=== PATIENT | female | born 1980 | race Caucasian/White ===

== ENCOUNTER → 2020-01-02 17:41 | Outpatient (CLI) | payer OTHER, SELFPAY ==
--- NOTE | 2020-01-02 17:41 | MM_ITS ---
PROCEDURE: MM DIG SCREENING MAMM BI W/CAD Digital Breast Tomosynthesis Included CLINICAL INDICATION: Routine Screening Mammogram-Hx of Breast Cancer There is a history of breast cancer in the patient's mother diagnosed before menopause. COMPARISON: MG DMDBAV DIG MAMM-DX JIMMY W ADD VIEWS from 06/05/2015 TECHNIQUE: Standard CC and MLO images and 3D Tomosynthesis was obtained. R2 CAD reviewed. FINDINGS: Moderate scattered fibroglandular densities are seen throughout both breasts. There is a tiny benign-appearing nodular density central portion left breast. It has smooth borders and likely is a tiny cyst. However there is a similar slightly larger density central portion right breast with slightly ill-defined borders best demonstrated on soledad images and best seen on the CC projection. It is not definitely seen on the MLO view. However recommend the patient return for spot compression MLO and CC views and ultrasound if this proves to be a true lesion. There are no suspicious microcalcifications. IMPRESSION: Moderate breast density with slightly suspicious asymmetric density right breast BI-RAD Category: 0 Need Additional Imaging Evaluation FOLLOW-UP: IMM Immediate Follow-up Recommended (A letter has been sent to the patient regarding results of the study.) Dictated by: Dr. Mark Herron MD 01/04/2020 09:12 Dr. Mark Herron MD in [place] 01/04/2020 09:12
== END ==
PROVIDERS: PCP Internal Medicine Adolescent Medicine; Visit Provider Nurse Practitioner Obstetrics & Gynecology
DX: Z12.31 Encounter for screening mammogram for malignant neoplasm of breast (principal); Z85.3 Personal history of malignant neoplasm of breast
CPT/HCPCS: 77063; 77067

== ENCOUNTER → 2020-01-12 14:42 | Outpatient (CLI) | payer OTHER, SELFPAY ==
--- NOTE | 2020-01-12 14:42 | US_ITS ---
PROCEDURE: MM DIG MAMM DX UNILAT RT CAD Digital Breast Tomosynthesis Included CLINICAL INDICATION: ABNORMAL MAMM Follow-up abnormal mammogram COMPARISON: MG DMDBAV DIG MAMM-DX JIMMY W ADD VIEWS from 06/05/2015 MG MM DIG SCREENING MAMM BI W/CAD from 01/02/2020 US US BREAST RT COMPLETE from 01/12/2020 US US BREAST LT COMPLETE from 01/12/2020 TECHNIQUE: Problem solving views performed along with bilateral breast ultrasound FINDINGS: On the CC view there is a persistent faint nodular opacity in the central aspect of the right breast posterior 1/3 measuring approximately 5 mm. Rolled views do not definitely reproduces finding however. Right breast ultrasound: At 10 o'clock there is a 9 x 5 mm cyst or dilated duct. Left breast ultrasound: There are 2 nodular densities in the lateral aspect of the left breast on the mammogram. At 3 o'clock there is a 5 mm cyst which may correspond to 1 of these nodules. In the left axilla there is a 14 x 13 mm hypoechoic nodule in the subcutaneous tissues with heterogeneous echogenicity with enhanced through transmission of sound possibly due to a sebaceous cyst. Technologist notes that this has been present for 2 years and is in the axilla. Additional nodule in the left axilla noted with similar echogenicity at 5 mm. IMPRESSION: Probably benign findings. Recommend bilateral 6 month mammographic and sonographic follow-up. Palpable nodules in the axilla may represent sebaceous cyst. Please correlate with clinical findings. BI-RAD Category: 3 Probably Benign Finding Short Term Follow-up FOLLOW-UP: 6M 6Month Follow-up (A letter has been sent to the patient regarding results of the study.) Dictated by: Evangelista Herrera MD 01/19/2020 11:16 Evangelista Herrera MD in [place] 01/19/2020 11:16
== END ==
PROVIDERS: PCP Internal Medicine Adolescent Medicine; Visit Provider Nurse Practitioner Obstetrics & Gynecology
DX: R92.2 Inconclusive mammogram (principal)
CPT/HCPCS: 76641; 77061; 77065; G0279

== ENCOUNTER 2020-11-05 18:09 | Emergency (ER) | payer OTHER, SELFPAY ==
[2020-11-05 18:15] VITALS: BP 146/91; PULSE 89; RESP 19; TEMP 36.8; O2SAT 98; BMI 48.6
--- NOTE | 2020-11-05 18:40 | HMH.EDUTC ---
[facility] [place] Clinical Impression: Sinusitis Qualifiers: Sinusitis location: unspecified location Chronicity: unspecified Qualified Code(s): J32.9 - Chronic sinusitis, unspecified Disposition: Home, Self-Care Condition on Discharge: Good Instructions: Sinusitis, DI for Sinusitis, Amoxicillin and Clavulanic Acid, Methylprednisolone Additional Instructions: *Monitor Temp, Over the counter Motrin or Tylenol as directed/as needed Tylenol every 4 hours and Motrin every 6 hours (as long as your family doctor has told you that you can take it) for fever or pain. and straight to ER if unable to lower temp less than 101.0 after medication given *Warm salt water gargles may help to soothe the throat *Throat Lozenges *Warm fluids like tea with honey may help to soothe the throat *Sleep elevated *Humidifier/Vaporizer Take medication as prescribed Follow up IMMEDIATELY for new or worsening symptoms or no Noticeable improvement over the next 48-72 hours. 911 for difficulty breathing or swallowing You were tested for today for COVID19 your test result should be back in the next 24-48 hours, You was given handout to [facility] your results should be available on there later today if you do not have internet or trouble accessing you can call at [phone] You was given a handout with instructions for Self Quarantine and Self isolation for while you wait on test results and what to do if they are positive If you are positive the Health Dept will be contacting you also Make sure to take your Vitamins Vit. C Vit D and Zinc if you can take them Prescriptions: methylPREDNISolone [Medrol 4mg tab] 4 mg PO DIRECTED #21 tab Transmission Status: Pending to [employer] # Azithromycin [Z-Kin 250mg Tab] 250 mg PO DIRECTED #6 tab Transmission Status: Pending to [employer] # Referrals: Stoney Lopez MD [Primary Care Provider] - As needed Forms: Work/School Release Time of Disposition: 18:49 Medical Decision Making - Baljit Inquiry Pt receiving controlled substance: No Baljit was queried for this patient: No Vital Signs: 11/05/20 18:15 Temperature 98.2 F Temperature Source Oral Pulse Rate [Right Brachial] 89 Respiratory Rate 19 Blood Pressure [Right Arm] 146/91 H Blood Pressure Mean [Right Arm] 109 Blood Pressure Source [Right Arm] Automatic Cuff Blood Pressure Position [Right Arm] Sitting 02 Sat by Pulse Oximetry 98 Oxygen Delivery Method Room Air Orders (Tests/Meds): ORDERS Category Date Time Status Covid-19 Nasal PCR ([facility]) Routine Lab 11/05/20 18:20 Received Medical Decision Narrative: Patient denies state that she is on the last day of her period [facility] [place] - General Stated complaint: sinus pressure, congestion, haedache Time Seen by Provider: 11/05/20 18:40 Mode of Arrival: Ambulatory Source of Information: Patient Limitations: No Limitations Description of Symptoms (Recalled from Triage Doc. by RN): PATIENT C/O SINUS CONGESTION, HEADACHE, AND SORE THROAT X 3 DAYS HEENT Symptoms (Recalled from RN notes): Yes Resp Symptoms (Recalled from RN notes): No Skin Symptoms (Recalled from RN notes): No MS Symptoms (Recalled from RN notes): No Functional Status (Recalled from RN notes): WNL - History of Present Illness Provider Complaint: Patient state that she has sinus issues states that she has been having congestion and drainage for over a week and for the last 3-4 days she has been having pain and pressure like feeling in her sinsues and feeling like it is behind her eyes States that she feels like it is a sinus infection but also wanted to get tested for COVID to make sure she is passing it on - Related Data Previous Rx's Medication Instructions Recorded Azithromycin [Z-Kin 250mg Tab*] 250 mg PO UD DOSE PK #6 tab 05/09/19 methylPREDNISolone [Medrol 4mg 4 mg PO DIRECTED #21 tab 05/09/19 tab] norgestimate 0.25 mg-ethinyl See R
[2020-11-05 18:49] LABS: UTC Strep Screen (Rapid) Negative (Negative)
[2020-11-05 18:55] VITALS: BP 146/91; PULSE 89; RESP 19; TEMP 36.8; O2SAT 98
== END 2020-11-05 18:58 | disposition home or self-care (01) ==
PROVIDERS: Emergency Provider Nurse Practitioner; PCP Internal Medicine Adolescent Medicine
DX: J32.9 Chronic sinusitis, unspecified (principal); Z20.822 Contact with and (suspected) exposure to COVID-19
CPT/HCPCS: 87880; 99203; G0463; U0003

== ENCOUNTER → 2021-02-25 15:13 | Outpatient (CLI) | payer OTHER, SELFPAY ==
[2021-02-25 16:18] LABS: Chloride 102 mmol/L (98-107); Potassium 4.7 mmoL/L (3.5-5.1); Sodium 136 mmol/L (136-145)
[2021-02-25 16:21] LABS: Alanine Aminotransferase 32 U/L (12-78); Albumin Level 4.4 g/dl (3.5-5.0); Albumin/Globulin Ratio 1.3 (1.1-1.8); Alkaline Phosphatase 120 U/L (38-126); Anion Gap 14.7 mEq/L (5-15); Aspartate Amino Transferase 36 U/L (14-36); Bilirubin,Total 0.3 mg/dl (0.2-1.3); Blood Urea Nitrogen 14 mg/dl (7-17); Calcium 9.6 mg/dl (8.4-10.2); Carbon Dioxide 24 mmol/L (22.0-30.0); Cholesterol 194 mg/dl (140-200); Estimated Glomerular Filt Rate 80 ml/min (>60); GFR (African American) 97 ML/MIN (>60); Globulin 3.4 g/dL (1.3-3.2); Glucose 130 mg/dl (74-100); Total Protein,Serum 7.8 g/dl (6.3-8.2); Triglycerides 148 mg/dl (30-150); VLDL Cholesterol 30 mg/dL (0-40)
[2021-02-25 16:22] LABS: Chol/HDL Ratio 5.1 (1-3.5); HDL Cholesterol 38 mg/dl (40-60)
[2021-02-25 16:33] LABS: Direct LDL Cholesterol 138.34 mg/dL (100-129)
== END ==
PROVIDERS: Visit Provider Nurse Practitioner Family
DX: Z00.00 Encounter for general adult medical examination without abnormal findings (principal)
CPT/HCPCS: 36415; 80053; 80061

== ENCOUNTER 2021-08-03 14:46 | Emergency (ER) | payer OTHER, SELFPAY ==
[2021-08-03 15:00] VITALS: BP 154/99; PULSE 89; RESP 19; TEMP 37; O2SAT 98; BMI 44.9
--- NOTE | 2021-08-03 15:27 | HMH.EDUTC ---
[facility] [place] Clinical Impression: Sinusitis Qualifiers: Sinusitis location: unspecified location Chronicity: unspecified Qualified Code(s): J32.9 - Chronic sinusitis, unspecified Disposition: Home, Self-Care Condition on Discharge: Good Instructions: Sinusitis, DI for Sinusitis, Sore Throat Additional Instructions: *Monitor Temp, Over the counter Motrin or Tylenol as directed/as needed Tylenol every 4 hours and Motrin every 6 hours (as long as your family doctor has told you that you can take it) for fever or pain. and straight to ER if unable to lower temp less than 101.0 after medication given *Warm salt water gargles may help to soothe the throat *Throat Lozenges *Warm fluids like tea with honey may help to soothe the throat *Sleep elevated *Humidifier/Vaporizer Take medication as prescribed Your throat swab was sent for culture. Those results are typically sent to your primary care. Be sure to follow up in 2-3 days with your family doctor/primary care physician if no improvement so they can review those result and treat if necessary. If you don?t have a primary care doctor, I recommend you get one but in the mean time, you will have to return to a walk in clinic Follow up IMMEDIATELY for new or worsening symptoms or no Noticeable improvement over the next 48-72 hours. 911 for difficulty breathing or swallowing Prescriptions: Amoxicillin/Potassium Clav [Amox-Clav 875-125 mg Tablet] 1 tab PO BID #20 tab Transmission Status: Pending to [employer] # methylPREDNISolone [Medrol 4mg tab] 4 mg PO DIRECTED #21 tab Transmission Status: Pending to [facility] # Referrals: Beatriz Maldonado APRN [Primary Care Provider] - As needed Time of Disposition: 15:40 Medical Decision Making - Baljit Inquiry Pt receiving controlled substance: No Baljit was queried for this patient: No Vital Signs: 08/03/21 15:00 Temperature 98.6 F Temperature Source Oral Pulse Rate [Left Brachial] 89 Respiratory Rate 19 Blood Pressure [Left Arm] 154/99 H Blood Pressure Mean [Left Arm] 117 Blood Pressure Source [Left Arm] Automatic Cuff Blood Pressure Position [Left Arm] Sitting 02 Sat by Pulse Oximetry 98 Oxygen Delivery Method Room Air - Lab Data Lab results reviewed: Yes: I reviewed the patient's lab results. Lab Results 08/03/21 15:05: Group A Strep Rapid Negative Orders (Tests/Meds): ORDERS Category Date Time Status Strep Screen Confirmation Stat Micro 08/03/21 15:05 Received [facility] [place] - General Stated complaint: sore throat,fever congestion Time Seen by Provider: 08/03/21 15:27 Mode of Arrival: Ambulatory Source of Information: Patient Limitations: No Limitations Description of Symptoms (Recalled from Triage Doc. by RN): PATIENT C/O COUGH, CONGESTION AND SORE THROAT SINCE WEDNESDAY HEENT Symptoms (Recalled from RN notes): Yes Resp Symptoms (Recalled from RN notes): Yes Skin Symptoms (Recalled from RN notes): No MS Symptoms (Recalled from RN notes): No Functional Status (Recalled from RN notes): WNL - History of Present Illness Provider Complaint: Patient states that she has been having sinus congestion and pressure along with sore throat, cough and headache State that she has been taking OTC medications but has continued to feel worse over the last few days and she feels like she may have strep throat - Related Data Previous Rx's Medication Instructions Recorded Amoxicillin/Potassium Clav 1 tab PO BID #20 tab 08/03/21 [Amox-Clav 875-125 mg Tablet] methylPREDNISolone [Medrol 4mg 4 mg PO DIRECTED #21 tab 08/03/21 tab] Allergies Allergy/AdvReac Type Severity Reaction Status Date / Time ibuprofen [IBUPROFEN] Allergy Mild Verified 01/02/19 14:52 meloxicam [From MOBIC] Allergy Mild Verified 01/02/19 14:52 ranitidine [RANITIDINE] Allergy Mild Verified 01/02/19 14:52 - Worker's Comp Is this a Worker's Comp case?: No [place] History - Hepatiti
[2021-08-03 15:29] LABS: Strep Scrn Group A (Rapid) Negative (Negative)
[2021-08-03 15:50] VITALS: BP 154/99; PULSE 89; RESP 19; TEMP 37; O2SAT 98
== END 2021-08-03 15:55 | disposition home or self-care (01) ==
PROVIDERS: Emergency Provider Nurse Practitioner; PCP Nurse Practitioner Family
DX: J32.9 Chronic sinusitis, unspecified (principal); J02.9 Acute pharyngitis, unspecified; F17.210 Nicotine dependence, cigarettes, uncomplicated
CPT/HCPCS: 87430; 99212; G0463

== ENCOUNTER → 2022-02-06 09:35 | Outpatient (CLI) | payer OTHER, SELFPAY ==
--- NOTE | 2022-02-06 09:37 | MM_ITS ---
PROCEDURE INFORMATION: Exam: MG Bilateral Screening 3D Mammography Exam date and time: 02/06/2022 9:39 AM Age: 42 years old Clinical indication: Screening examination. Patient had been recommended for six-month follow-up for sonographic findings on 01/19/2020 and for calcifications in the upper aspect of the right breast in the MLO on 01/19/2020. TECHNIQUE: Imaging protocol: Bilateral Screening tomosynthesis and 2D mammography including computer-aided detection (CAD) when performed. COMPARISON: 1. MG MM DIG MAMM DX UNILAT RT CAD 01/12/2020 2:54 PM 2. MG MM DIG SCREENING MAMM BI W/CAD 01/02/2020 5:40 PM 3. MG DMDBAV DIG MAMM-DX JIMMY W ADD VIEWS 06/05/2015 5:06 PM 4. US BREAST LT COMPLETE 01/12/2020 3:18 PM FINDINGS: MAMMOGRAPHY: Breast composition: There are scattered areas of fibroglandular density. Mass: None. Architectural distortion: None. Calcifications: No suspicious calcifications. Asymmetric density: None. Skin thickening: None. Axillary adenopathy: None. IMPRESSION: See comment No mammographic evidence of malignancy. Annual screening is recommended unless otherwise clinically indicated. Please note that follow-up bilateral sonography was recommended on 01/19/2020, if this is not been performed in the interval, patient should be recalled for bilateral sonography at this time. ASSESSMENT: BI-RADS Category 1: Negative
== END ==
PROVIDERS: PCP Nurse Practitioner Family; Visit Provider Nurse Practitioner Family
DX: Z12.31 Encounter for screening mammogram for malignant neoplasm of breast (principal)
CPT/HCPCS: 77063; 77067

== ENCOUNTER 2023-07-05 10:30 | Outpatient (CLI) | payer BC, SELFPAY ==
--- NOTE | 2023-07-05 10:31 | MM_ITS ---
PROCEDURE INFORMATION: Exam: MG Bilateral Screening 3D Mammography Exam date and time: 07/05/2023 10:38 AM Age: 43 years old Clinical indication: Screening examination TECHNIQUE: Imaging protocol: Bilateral Screening tomosynthesis and 2D mammography including computer-aided detection (CAD) when performed. COMPARISON: 1. MG MM DIG SCREENING MAMM BI W/CAD 02/06/2022 9:39 AM 2. MG MM DIG MAMM DX UNILAT RT CAD 01/12/2020 2:54 PM FINDINGS: MAMMOGRAPHY: Breast composition: There are scattered areas of fibroglandular density. Mass: None. Architectural distortion: None. Calcifications: No suspicious calcifications. Asymmetric density: None. Skin thickening: None. Axillary adenopathy: None. IMPRESSION: No mammographic evidence of malignancy. Annual screening is recommended unless otherwise clinically indicated. ASSESSMENT: BI-RADS Category 1: Negative
== END 2023-07-05 23:59 | disposition home or self-care (01) ==
LOC: RAD 10:31
PROVIDERS: PCP Nurse Practitioner Family; Visit Provider Nurse Practitioner Obstetrics & Gynecology
DX: Z12.31 Encounter for screening mammogram for malignant neoplasm of breast (principal)
CPT/HCPCS: 77063; 77067

== ENCOUNTER 2024-03-29 17:04 | Emergency (ER) | payer BC, SELFPAY ==
--- NOTE | 2024-03-29 17:04 | ECG_ITS ---
APPROVED REPORT Exam: Resting ECG HR:90 bpm ECG Measurements Heart Rate 90 AXES MD 138 P 52 QRSd 87 QRS -2 QT 343 T 46 QTc 391 Conclusion Sinus rhythm Electronically signed by : DYLAN BRANDT, 03/29/2024 23:09:49
[2024-03-29 17:05] VITALS: BP 155/87; PULSE 95; RESP 12; TEMP 36.8; O2SAT 100; BMI 39.3
--- NOTE | 2024-03-29 17:33 | ED_ITS ---
Discharge Plan Disposition Patient Disposition: Home, Self-Care Prescriptions Prescriptions: New dexamethasone 6 mg tablet 6 mg PO DAILY Qty: 5 0RF No Action Mounjaro 5 mg/0.5 mL pen injector 5 mg SQ WEEKLY Patient Comments: INJECT 1 SYRINGE SUBCUTANEOUSLY ONCE A WEEK lisinopril 2.5 mg tablet 2.5 mg PO DAILY simvastatin 10 mg tablet 10 mg PO DAILY Referrals Follow up/Referrals: Jose De Jesus Ansari APRN [Primary Care Provider] - See instructions Dirk Olivia, PT [Physical Therapist] - See instructions Activity Restrictions/Add. Instructions Additional Instructions/Restrictions: Call your family doctor to establish care for this visit to the emergency department and schedule follow-up within 48 hours to ensure improvement. If you have any worsening of your condition or any other concerning signs or symptoms, return to the emergency department or your primary care doctor for further evaluation. Decadron each morning for the next 5 days. Physical therapy information here if you continue to have symptoms. Clinical Impressions Clinical Impression: Cervical radiculopathy at C8, Heart palpitations Print Language Print Language: Serbian Discharge ED Provider: Karl Beebe [facility] General Chief Complaint: Chest Pain Stated Complaint: Chest Pain Time Seen by Provider: 03/29/24 17:14 Mode of Arrival: Ambulatory Source of Information: Patient Limitations: No Limitations Description of Symptoms (Recalled from ER Triage Doc. by RN): pt presents to ED with c/o heart feeling funny . pt reports no chest pain and no shortness of breath. pt reports that she was at work and got up to walk around and began to have her heart flutter. pt reports pain radiating to left arm. History of Present Illness HPI narrative: Please note that above description of symptoms, in this electronic medical record under categorization of recalled from ER triage doctor by RN are reflective of an initial nursing assessment, however, is not reflective of my full history and physical exam that was personally taken and clarified. Consequentially, this preceding description of symptoms, which may include the patient's categorized chief complaint in the EMR, do not reflect my personal clinical impression, and the ultimate description of history of present illness and patient stated complaints should be deferred to this section of the note. Unless stated otherwise or congruent with this section of the note, additional signs, symptoms, or incongruence should be interpreted as inaccurate with my clinical impression. Related Data Home Medications ?Medication ?Instructions ?Recorded ?Confirmed lisinopril 2.5 mg tablet 2.5 mg PO DAILY 07/05/23 07/05/23 simvastatin 10 mg tablet 10 mg PO DAILY 07/05/23 07/05/23 tirzepatide 5 mg/0.5 mL 5 mg SQ WEEKLY 07/05/23 07/05/23 subcutaneous pen injector (Mounjaro) Previous Rx's ?Medication ?Instructions ?Recorded dexamethasone 6 mg tablet 6 mg PO DAILY #5 tabs 03/29/24 Allergies Allergy/AdvReac Type Severity Reaction Status Date / Time ibuprofen (IBUPROFEN) Allergy Mild Verified 07/05/23 09:39 meloxicam (From MOBIC) Allergy Mild Verified 07/05/23 09:39 ranitidine (RANITIDINE) Allergy Mild Verified 07/05/23 09:39 [facility] Disclaimer: The information contained in this section may have been updated after the patient was seen, as this information can be updated by other users. Medical History (Updated 03/29/24 @ 18:48 by Karl Beebe MD) Diabetes type 2, controlled Surgical History (Updated 07/05/23 @ 09:47 by ESTEE Kruger) S/P arteriovenous (AV) fistula repair History of cholecystectomy Family History (Updated 07/05/23 @ 09:48 by ESTEE Kruger) Mother Cancer Grandmother Cancer Father Diabetes Grandfather Diabetes Social History (Updated 07/05/23 @ 09:49 by ESTEE Kruger) Smoking Status: Never smoker alcohol intake: never substance use type: denies use current occupational status: other Travel in the last 8 weeks: None household members: spouse and children housing: house Have you lived/traveled outside [place] in past 30 days?: No Contact w/someone who lives/traveled outside [place] past 30 days?: No Exposure to someone with infectious disease in past 14 days?: No Do you have a fever (greater than 100.4 F or 38 C)?: No Have you tested positive for COVID-19: No Exposed to someone with COVID-19 in past 14 days?: No Do you have a sore throat?: No Do you have a cough?: No Do you have any weakness?: No Do you have any diarrhea?: No Are you experiencing any unusual bleeding?: No Do you have any muscle aches/pain?: No Do you have any abdominal pain?: No Are you experiencing loss of taste or smell?: No Other Medical History Have you received the Flu Vaccine for this season: No Have you received the Pneumonia Vaccine: No ROS Obtained: Yes All systems reviewed & no additional complaints except as documented Physical Exam General General appearance: alert and in no apparent distress Neck Neck exam: Present trachea midline and tenderness (Midline spinal tenderness overlying C6/C7) Chest Chest inspection: Present normal inspection and symmetric chest wall rise Respiratory Respiratory exam: Present normal lung sounds bilaterally; Absent respiratory distress, wheezes, stridor, accessory muscle use or prolonged expiratory phase Cardiovascular Cardiovascular exam: Present regular rate, normal rhythm and other (Pulses equal and symmetric in upper and lower extremities) Extremities Exam Extremities exam: Absent edema Neurological Exam Neurological exam: Present alert, oriented X3 and CN II-XII intact Skin Skin exam: Present warm and dry; Absent cyanosis, diaphoresis or pallor HEART Score HEART Score HEART Score assessment performed?: Yes HEART Score: 0 Procedures Limited Ultrasound Indication:: Limited cardiac ultrasound Indication: Palpitations, left arm pain, history of rheumatic fever Identified cardiac views: -Cardiac parasternal long axis -Cardiac parasternal short axis -Cardiac apical four-chamber Findings: -Cardiac activity present -Gross wall motion normal -Pericardial effusion absent -Right heart strain absent Impression: -Normal cardiac ultrasound. No evidence of effusion. No evidence of valvular abnormalities. Grossly normal ultrasound Images were saved to permanent archive The study was technically adequate CPT: 69992 This study was performed by me, and I personally interpreted all images/videos. Based on my clinical judgement, these images were adequate and did not necessitate further imaging Critical Care Critical Care Time Critical Care Time: No Medical Decision Making Medical Records Medical records reviewed: Yes I reviewed the patient's medical records. Baljit Inquiry Pt receiving controlled substance: No Baljit was queried for this patient: No Vital Signs Vital Signs: 03/29/24 17:05 03/29/24 17:48 Temperature 98.2 F Temperature Source Oral Pulse Rate 77 Pulse Rate [Left Radial] 95 H Respiratory Rate 12 12 Blood Pressure 121/67 Blood Pressure [Right Arm] 155/87 H Blood Pressure Mean [Right Arm] 109 02 Sat by Pulse Oximetry 100 99 Oxygen Delivery Method Room Air Lab Data Labs: Lab Results 03/29/24 17:10: WBC 10.7, RBC 4.89, Hgb 14.2, Hct 43.3, MCV 88.5, MCH 29.0, MCHC 32.8, RDW 12.2, Plt Count 225, MPV 9.6, Neut % (Auto) 59.0, Lymph % (Auto) 32.5, [place] % (Auto) 6.5, Eos % (Auto) 1.4, Baso % (Auto) 0.3, Neut # (Auto) 6.2, Lymph # (Auto) 3.4, [place] # (Auto) 0.7, Eos # (Auto) 0.2, Baso # (Auto) 0.0, APTT 25.9, Sodium 137, Potassium 4.0, Chloride 102, Carbon Dioxide 26, Anion Gap 13.0, BUN 11, Creatinine 0.90, Estimated Creat Clear 129, Estimated GFR 69, Est GFR ( Amer) 83, Glucose 109 H, Calcium 10.0, Magnesium 1.6, Total Bilirubin 0.4, AST 27, ALT 21, Alkaline Phosphatase 103, Troponin I < 0.01, Total Protein 8.3 H, Albumin 4.6, Globulin 3.7 H, Albumin/Globulin Ratio 1.2, TSH 0.84, T hyroxine (T4) 13.5 H 03/29/24 17:10 03/29/24 17:10 Response Orders (Tests/Meds): ED MEDICATIONS Discontinued Medications Generic Name Dose Route Start Last Admin Trade Name Merlin PRN Reason Stop Dose Admin Dexamethasone 10 mg 03/29/24 17:31 03/29/24 17:40 Dexamethasone 4mg Tablet PO 03/29/24 17:32 10 mg ONCE ONE Administration ORDERS Category Date Time Status POCUS Point of Care (ER Only) Stat Exams 03/29/24 18:17 Ordered Complete Blood Count Auto Diff Stat Lab 03/29/24 17:10 Completed Comprehensive Metabolic Panel Stat Lab 03/29/24 17:10 Completed HIV Combo Stat Lab 03/29/24 17:10 Received Hemoglobin A1C Stat Lab 03/29/24 17:10 Received Hepatitis C Ab Qual. W/ RFX Stat Lab 03/29/24 17:10 Received Magnesium Stat Lab 03/29/24 17:10 Completed PTT [Activated Partial Thrombo Time] Stat Lab 01/22/25 17:10 Completed T4 (Thyroxine) Stat Lab 03/29/24 17:10 Completed TSH [Thyroid Stimulating Hormone] Stat Lab 03/29/24 17:10 Completed Troponin I Q3H Lab 03/29/24 20:45 Ordered Troponin I Q3H Lab 03/29/24 23:45 Ordered Troponin I Stat Lab 03/29/24 17:10 Completed MDM Narrative Medical Decision Narrative: 44-year-old female with previous history of diabetes currently managed with most recent A1c 5.0 presenting with left upper extremity pain palpitations. Patient states that she works from home. Sat down in her chair a couple hours prior to arrival, started having pain shooting from her neck down into her little finger on her left upper extremity. Has never had anything like this before. She states that shortly after this, she started realizing that she was having palpitations. 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 Came in for further evaluation. Pain is currently moderate in intensity, but made better when she raises her arm above her head. Not currently having palpitations, denies having ever had chest pain, shortness of breath, or any other cardiac related complaints. History was obtained via conversation with patient. On arrival, patient hemodynamically stable, alert, oriented x4, appropriate, GCS 15, moving all extremities spontaneously, pupils equal and reactive to light. Full physical exam performed and significant for well-appearing female no acute distress. She does have midline spinal tenderness at C6-C7 without muscular tenderness. She does have exaggerated cervical lordosis. Cardiac exam within normal limits no murmurs gallops or rubs. Lungs are clear. Differential includes radiculopathy, neuropathy, disc herniation, metabolic abnormality, endocrinologic abnormality, ACS, [place], arrhythmia, among others. Patient was given 10 mg Decadron for symptomatic management and correction of underlying abnormalities. Patient placed on continuous cardiac monitoring and continuous pulse ox with initial blood pressure 155/80, heart rate 95, saturation 100% on room air. Independent interpretation of EKG shows sinus rhythm 90 bpm with no acute ischemic change. UT 138, QRS 87, QTc 391. Borderline leftward axis. Workup independently interpreted and significant for nonactionable CBC or chemistry. Troponin negative, TSH normal, T4 mildly elevated at 13.5. Heart score 0. Bedside [id number] ultrasound was performed to evaluate heart, no acute abnormalities, see note for further information. On reevaluation, patient resting comfortably, states that the pain is moderately improved since Decadron. Given patient presentation, workup, history, this most likely represents cervical radiculopathy. Because patient at baseline without signs or symptoms of clinical decompensation, deemed appropriate for discharge. Results were relayed to patient who voiced understanding and were agreeable to outpatient management and follow up. I discussed my clinical impression with patient and answered all questions. At this time, the evidence for any other entities in the differential is insufficient to warrant any further testing or ED observation. This was explained as well. Advisory was given that persistent or worsening symptoms require further evaluation. I confirmed the understanding of this discussion. Customer Relations Coordinator disclaimer Much of this encounter note is an electronic machinist tool and die spoken language to printed text. Electronic machinist tool and die of the spoken language may permit errors. Although I have reviewed the note, some errors may still exist.
[2024-03-29] MEDS: DEXAMETHASONE 4MG TABLET 10 MG PO (17:40)
[2024-03-29 17:42] LABS: Chloride 102 mmol/L (98-107)
[2024-03-29 17:43] LABS: Albumin Level 4.6 g/dl (3.5-5.0); Sodium 137 mmol/L (136-145)
[2024-03-29 17:45] LABS: Blood Urea Nitrogen 11 mg/dl (7-17); Creatinine Clearance Estimated 129 mL/min (50-200); Estimated Glomerular Filt Rate 69 ml/min (>60); GFR (African American) 83 ML/MIN (>60)
[2024-03-29 17:46] LABS: Alanine Aminotransferase 21 U/L (12-78); Albumin/Globulin Ratio 1.2 (1.1-1.8); Alkaline Phosphatase 103 U/L (38-126); Aspartate Amino Transferase 27 U/L (14-36); Bilirubin,Total 0.4 mg/dl (0.2-1.3); Carbon Dioxide 26 mmol/L (22.0-30.0); Globulin 3.7 g/dL (1.3-3.2); Glucose 109 mg/dl (74-100); Magnesium 1.6 mg/dl (1.6-2.3); Total Protein,Serum 8.3 g/dl (6.3-8.2)
[2024-03-29 17:48] VITALS: BP 121/67; PULSE 77; RESP 12; O2SAT 99
[2024-03-29 17:55] LABS: Activated Partial Thrombo Time 25.9 seconds (22.5-28.5)
[2024-03-29 17:59] LABS: Hematocrit 43.3 % (37.0-47.0); Hemoglobin 14.2 g/dL (12.2-16.2); Mean Corpuscular HGB Conc 32.8 g/dL (31.8-35.4); Mean Corpuscular Volume 88.5 fl (81-99); Red Blood Count 4.89 M/mm3 (4.20-5.40); White Blood Count 10.7 K/mm3 (4.8-10.8)
[2024-03-29 18:00] VITALS: BP 111/67; PULSE 74; RESP 18; O2SAT 100
[2024-03-29 18:03] LABS: T4 (Thyroxine) 13.5 ug/dl (5.53-11.0)
[2024-03-29 18:07] LABS: Basophils % 0.3 % (0.1-2.0); Eosinophils # 0.2 K/mm3 (0.0-0.4); Eosinophils % 1.4 % (0.1-12.0); Lymphocytes # 3.4 K/mm3 (0.7-4.5); Lymphocytes % 32.5 % (10-50); Monocytes # 0.7 K/mm3 (0.1-1.0); Monocytes % 6.5 % (1.7-9.3); Neutrophils # 6.2 K/mm3 (1.8-7.8)
[2024-03-29 18:08] LABS: Mean Platelet Volume 9.6 fl (7.4-10.4); Platelet Count 225 K/mm3 (142-424); Red Cell Distribution Width 12.2 % (11.5-17.5)
[2024-03-29 18:11] LABS: Troponin I < 0.01 ng/ml (0.00-0.034)
[2024-03-29 18:17] LABS: Thyroid Stimulating Hormone 0.84 uIU/mL (0.465-4.68)
[2024-03-29 18:30] VITALS: BP 114/69; PULSE 72; RESP 16; O2SAT 98
[2024-03-29 18:31] LABS: HIV Combo NEGATIVE (Negative)
[2024-03-29 18:51] LABS: Hepatitis C Ab Qual. W/ RFX NEGATIVE (Negative)
[2024-03-29 18:54] VITALS: BP 114/65; PULSE 88; RESP 20; TEMP 36.5
[2024-03-29 18:57] LABS: Hemoglobin A1C 5.1 % (4.0-6.0)
== END 2024-03-29 18:57 | disposition home or self-care (01) ==
PROVIDERS: Emergency Provider Emergency Medicine; PCP Nurse Practitioner Family
DX: R00.2 Palpitations (principal); M54.12 Radiculopathy, cervical region; R07.9 Chest pain, unspecified; M79.602 Pain in left arm
CPT/HCPCS: 80053; 83036; 83735; 84436; 84443; 84484; 85025; 85730; 86803; 87389; 93005; 99283; J8540